=== PATIENT | female | born 1995 | race Hispanic/Latino ===

== ENCOUNTER 2018-03-23 07:21 | Inpatient (IN) | payer MEDICAID ==
[2018-03-23] MEDS ORDERED: EPHEDRINE SULFATE 50 MG/ML AMPULE IVP PRN (07:30)
[2018-03-23] MEDS ORDERED: LACTATED RINGERS 500 ML 500 ML IV PRN (07:30)
[2018-03-23] MEDS ORDERED: PROMETHAZINE HCL 25 MG/ML 1ML AMPULE IM PRN (07:30)
[2018-03-23] MEDS ORDERED: MEPERIDINE-PF 50 MG/ML SYG SQ PRN (07:30)
[2018-03-23] MEDS ORDERED: NALOXONE HCL 0.4 MG/1 ML ML IV PRN (07:30)
[2018-03-23] MEDS ORDERED: OXYTOCIN 10 USP UNITS/ML ONE ×2 (08:22→19:31)
[2018-03-23 08:30] LABS: HEMATOCRIT 38.8 % (36-48); MEAN CORPUSCULAR HEMOGLOBIN 29.6 pg (27.0-33.0); MEAN CORPUSCULAR HGB CONC 33.2 g/dL (32.0-36.0); MEAN CORPUSCULAR VOLUME 89.3 fL (79-99); PLATELET COUNT (AUTO) 358 K/uL (130-400); RED BLOOD CELL COUNT(AUTO) 4.35 MIL/uL (4.00-5.50); RED CELL DISTRIBUTION WIDTH 13.9 % (11.0-15.5); WHITE BLOOD COUNT (AUTO) 11.9 K/uL (4.8-10.8)
[2018-03-23] MEDS ORDERED: LACTATED RINGERS 1000ML 1,000 ML IV PRN (08:39)
[2018-03-23] MEDS ORDERED: OXYTOCIN-LR 20 UNITS/1000 ML 1,000 ML IV SCH ×2 (08:45→14:30)
[2018-03-23 12:05] LABS: APPEARANCE,URINE Cloudy (CLEAR); BILIRUBIN,URINE Negative (NEGATIVE); COLOR,URINE Dark Yellow (YELLOW); GLUCOSE, URINE (UA) Negative (NEGATIVE); KETONES,URINE Negative (NEGATIVE); LEUKOCYTE ESTERASE ,URINE Large (NEGATIVE); NITRATE,URINE Negative (NEGATIVE); OCCULT BLOOD,URINE Negative (NEGATIVE); PROTEIN,URINE Trace (NEGATIVE)
[2018-03-23 12:29] LABS: BACTERIA,URINE Rare /HPF (None Seen); RBC,URINE 0-1 /HPF (0-1)
[2018-03-23 12:30] LABS: MUCUS,URINE Rare LPF (None Seen); SQUAMOUS EPITHELIAL CELL,UR Rare /HPF (0-2)
[2018-03-23] MEDS ORDERED: ACETAMINOPHEN-CODEINE 300/30MG TAB PO PRN (14:30)
[2018-03-23] MEDS ORDERED: HYDROCODONE/ACETAMINOPHEN 5/325 MG TAB PO PRN (14:30)
[2018-03-23] MEDS ORDERED: DIPH,PERTUSS(ACELL),TET VAC/PF 0.5 ML VIAL IM PRN (14:30)
[2018-03-23] MEDS ORDERED: MEASLES/MUMPS/RUBELLA VACCINE, LIVE 0.5 ML/VIAL SQ PRN (14:30)
[2018-03-23] MEDS ORDERED: WITCH HAZEL 1 PAD TP PRN (14:30)
[2018-03-23] MEDS ORDERED: IBUPROFEN 600 MG TABLET PO PRN (14:30)
[2018-03-23] MEDS ORDERED: ACETAMINOPHEN 325 MG TAB PO PRN (14:30)
[2018-03-23] MEDS ORDERED: BENZOCAINE/LANOLIN/ALOE VERA 60 ML AEROSOL TP PRN (14:30)
[2018-03-23] MEDS ORDERED: LANOLIN 30GM OINTMENT TP PRN (14:30)
[2018-03-23] MEDS: IBUPROFEN 800 MG TAB PO PRN (16:45)
[2018-03-23 16:54] VITALS: BP 126/73
[2018-03-23] MEDS ORDERED: PREN-154 PO (17:19)
[2018-03-23 19:47] VITALS: BP 107/64
[2018-03-23] MEDS: DOCUSATE SODIUM 100 MG CAP PO SCH (21:29)
[2018-03-24 00:48] VITALS: BP 117/86
[2018-03-24 04:15] VITALS: BP 113/72
[2018-03-24 06:28] LABS: HEMATOCRIT 31.7 % (36-48); MEAN CORPUSCULAR HEMOGLOBIN 29.2 pg (27.0-33.0); MEAN CORPUSCULAR HGB CONC 32.9 g/dL (32.0-36.0); MEAN CORPUSCULAR VOLUME 88.7 fL (79-99); PLATELET COUNT (AUTO) 256 K/uL (130-400); RED BLOOD CELL COUNT(AUTO) 3.58 MIL/uL (4.00-5.50); RED CELL DISTRIBUTION WIDTH 13.9 % (11.0-15.5); WHITE BLOOD COUNT (AUTO) 16.2 K/uL (4.8-10.8)
[2018-03-24] MEDS: IBUPROFEN 800 MG TAB PO PRN ×2 (06:37→14:14)
[2018-03-24 07:21] VITALS: BP 116/70
[2018-03-24] MEDS: DOCUSATE SODIUM 100 MG CAP PO SCH (08:03)
[2018-03-24 08:23] LABS: HEPATITIS Bs ANTIGEN SCREEN P Negative (Negative)
[2018-03-24 11:28] VITALS: BP 119/76
[2018-03-24 15:34] VITALS: BP 117/72
== END 2018-03-24 16:35 | disposition home or self-care (01) | DRG 560 ==
LOC: EDSTATUS 07:21 → LDH 07:25 → WSH 16:53
PROVIDERS: ADMIT Obstetrics & Gynecology; ATTEND Obstetrics & Gynecology
PROC: 10E0XZZ Delivery of Products of Conception, External Approach (ICD-10-PCS; principal; 2018-03-23)
PROC: 0KQM0ZZ Repair Perineum Muscle, Open Approach (ICD-10-PCS; 2018-03-23)
PROC: 10907ZC Drainage of Amniotic Fluid, Therapeutic from Products of Conception, Via Natural or Artificial Opening (ICD-10-PCS; 2018-03-23)
PROC: 3E0R3BZ Introduction of Anesthetic Agent into Spinal Canal, Percutaneous Approach (ICD-10-PCS; 2018-03-23)
PROC: 00HU33Z Insertion of Infusion Device into Spinal Canal, Percutaneous Approach (ICD-10-PCS; 2018-03-23)
PROC: 3E0234Z Introduction of Serum, Toxoid and Vaccine into Muscle, Percutaneous Approach (ICD-10-PCS; 2018-03-23)
DX: O70.1 Second degree perineal laceration during delivery (principal); Z23 Encounter for immunization; Z37.0 Single live birth; Z3A.39 39 weeks gestation of pregnancy
CPT/HCPCS: 36415; 81001; 85027; 86592; 86850; 86900; 86901; 87340; 90715; A4314; A4606; J2590; J7120

== ENCOUNTER → 2020-03-06 | Outpatient (CLI) | payer OTHER ==
[~2020-03-06] MED LIST: PREN-154 PO
[2020-03-06 12:00] LABS: APPEARANCE,URINE Cloudy (CLEAR); BILIRUBIN,URINE Negative (NEGATIVE); COLOR,URINE Yellow (YELLOW); GLUCOSE, URINE (UA) Negative (NEGATIVE); KETONES,URINE 40 mg/dL (NEGATIVE); LEUKOCYTE ESTERASE ,URINE Moderate (NEGATIVE); NITRATE,URINE Negative (NEGATIVE); OCCULT BLOOD,URINE Negative (NEGATIVE); PH,URINE 6.5 (5.0-8.0); PROTEIN,URINE Trace mg/dL (NEGATIVE)
[2020-03-06 12:09] LABS: RBC,URINE 0-1 /HPF (0-1)
[2020-03-06 12:11] LABS: BACTERIA,URINE Moderate /HPF (None Seen); WBC,URINE 26-50 /HPF (0-1)
[2020-03-06 12:12] LABS: MUCUS,URINE Many LPF (None Seen); SQUAMOUS EPITHELIAL CELL,UR Moderate /HPF (0-2)
[2020-03-06 13:15] LABS: RAPID PLASMA REAGIN NONREACTIVE (NONREACTIVE)
[2020-03-07 09:13] LABS: HEPATITIS Bs ANTIGEN SCREEN P Negative (Negative)
== END | disposition home or self-care (01) ==
LOC: LAB 10:54
PROVIDERS: ATTEND Obstetrics & Gynecology
DX: Z11.3 Encounter for screening for infections with a predominantly sexual mode of transmission (principal); Z01.419 Encounter for gynecological examination (general) (routine) without abnormal findings
CPT/HCPCS: 36415; 81001; 86592; 86701; 87088; 87340; 87390

== ENCOUNTER → 2021-03-24 | Outpatient (CLI) | payer OTHER ==
[2021-03-25 09:41] LABS: RAPID PLASMA REAGIN NONREACTIVE (NONREACTIVE)
[2021-03-25 15:12] LABS: HEPATITIS Bs ANTIGEN SCREEN P Negative (Negative)
== END | disposition home or self-care (01) ==
LOC: LAB 13:04
PROVIDERS: ATTEND Obstetrics & Gynecology
DX: Z01.419 Encounter for gynecological examination (general) (routine) without abnormal findings (principal)
CPT/HCPCS: 36415; 86592; 86695; 86701; 87340; 87390

== ENCOUNTER 2022-01-08 19:29 | Emergency (ER) | payer OTHER ==
[~2022-01-08] VITALS: Ht 152.4 cm; Wt 79.4 kg
[~2022-01-08 19:29] MED LIST changes: +CEPH500B PO; +NAPR-1196 PO
[2022-01-08 20:07] VITALS: BP 125/95
[2022-01-08] MEDS ORDERED: ACET-2247 PO (20:19)
[2022-01-08] MEDS ORDERED: CEPH500B PO (20:19)
[2022-01-08] MEDS ORDERED: CEPHALEXIN 500 MG CAPSULE PO ONE (20:30)
[2022-01-08] MEDS ORDERED: ACETAMINOPHEN 500 MG TABLET PO ONE (20:30)
== END 2022-01-08 20:27 | disposition home or self-care (01) ==
LOC: EDH 19:29
DX: R23.8 Other skin changes (principal); E66.9 Obesity, unspecified; Z79.1 Long term (current) use of non-steroidal anti-inflammatories (NSAID); Z68.34 Body mass index [BMI] 34.0-34.9, adult
CPT/HCPCS: 82948